=== PATIENT | female | born 1990 | race Asian ===

== ENCOUNTER 2020-10-18 13:28 | Outpatient (CLI) | payer BC | END 2020-10-18 13:29 | disposition home or self-care (01) | LOC: CSHMAMMO 13:28 | PROVIDERS: ATTEND Internal Medicine | DX: N63.10 Unspecified lump in the right breast, unspecified quadrant (principal); D24.1 Benign neoplasm of right breast; Z87.898 Personal history of other specified conditions | CPT/HCPCS: 77066; G0279 ==